=== PATIENT | female | born 1995 | race Caucasian/White ===

== ENCOUNTER 2020-11-04 15:30 | Emergency (ER) | payer MEDICAID ==
[~2020-11-04] VITALS: Ht 170.2 cm; Wt 90.7 kg
[2020-11-04 15:42] VITALS: BP_SYST 112
--- NOTE | 2020-11-04 15:49 | NUR ---
Patient to ER bed 7 to gown for evaluation. Side rails up.
--- NOTE | 2020-11-04 15:50 | NUR ---
Patient ambulated to restroom to provide urine sample.
--- NOTE | 2020-11-04 15:50 | NUR ---
Patient is awake, alert, and oriented x4. Patient was brought in via wheelchair for evaluation of abdominal pain since yesterday. Patient went to [facility] yesterday and was told she has inflammation and was sent home without pain medication. She is complaining of mild pain and it is difficult for her to walk because of it, she would also like pain medication.
--- NOTE | 2020-11-04 15:54 | NUR ---
Patient ambulated back to [facility].
[2020-11-04 16:11] LABS: COLOR,URINE YELLOW (YELLOW)
[2020-11-04 16:12] LABS: BILIRUBIN,URINE NEGATIVE (NEGATIVE); BLOOD, URINE 3+ (NEGATIVE); CLARITY/URINE HAZY (CLEAR); GLUCOSE,URINE NEGATIVE (NEGATIVE); KETONES,URINE NEGATIVE (NEGATIVE); LEUKOCYTE ESTERASE ,URINE 2+ (NEGATIVE); NITRITE, URINE NEGATIVE (NEGATIVE); PROTEIN URINE NEGATIVE (NEGATIVE); UROBILINOGEN,URINE 0.2 (0.2-1.0)
[2020-11-04 16:14] LABS: BACTERIA,URINE MANY /HPF (None Seen); MUCUS,URINE 1+ /LPF (None Seen); RBC,URINE 80-100 /HPF (0-3)
[2020-11-04 16:14] LABS: BASOPHILS # (AUTO) 0.1 K/uL (0.0-0.2); BASOPHILS % (AUTO) 0.9 % (0.0-2.0); EOSINOPHILS # (AUTO) 0.2 K/uL (0.0-0.4); EOSINOPHILS % (AUTO) 2.1 % (0.0-4.0); HEMATOCRIT 39.1 % (36-48); HEMOGLOBIN 13.1 g/dL (12.0-16.0); LYMPHOCYTES # (AUTO) 2.4 K/uL (1.0-5.5); LYMPHOCYTES % (AUTO) 25.2 % (20.5-51.5); MEAN CORPUSCULAR HEMOGLOBIN 29 pg (27-31); MEAN CORPUSCULAR HGB CONC 34 % (32-36); MEAN CORPUSCULAR VOLUME 86 fL (79.0-98.0); MONOCYTES # (AUTO) 0.5 K/uL (0.0-1.0); MONOCYTES % (AUTO) 5.1 % (1.7-9.3); NEUTROPHILS # (AUTO) 6.3 K/uL (1.8-7.7); NEUTROPHILS % (AUTO) 66.7 % (40.0-70.0); PLATELET COUNT (AUTO) 359 K/uL (130-430); RED BLOOD CELL COUNT(AUTO) 4.54 MIL/uL (4.2-6.2); RED CELL DISTRIBUTION WIDTH 14.2 % (9.0-15.0); WHITE BLOOD COUNT (AUTO) 9.5 K/uL (4.8-10.8)
[2020-11-04] MEDS ORDERED: ACETAMINOPHEN 500 MG TABLET PO ONE (16:15)
[2020-11-04 16:22] LABS: ANION GAP 12 (5-15); CHLORIDE 103 mmol/L (98-107); CREATININE 0.99 mg/dL (0.55-1.30); GLUCOSE 92 mg/dL (70-99); POTASSIUM 3.7 mmol/L (3.5-5.1); SODIUM SERUM 138 mmol/L (136-145); UREA NITROGEN, BLOOD 16 mg/dL (8-21)
[2020-11-04 16:28] LABS: ALANINE AMINOTRANSFERASE 90 U/L (12-78); ALBUMIN 3.2 g/dL (3.4-4.8); ASPARTATE AMINOTRANSFERASE 21 U/L (10-37); BILIRUBIN,DIRECT < 0.1 mg/dL (0.0-0.3); LIPASE 103 U/L (73-393); TOTAL BILIRUBIN 0.2 mg/dL (0.0-1.0)
[2020-11-04 16:30] LABS: GFR AFRICAN AMERICAN 89 mL/min (>90)
--- NOTE | 2020-11-04 19:15 | NUR ---
Report given to TRISTAN Lopez for continuation of care.
[2020-11-04] MEDS ORDERED: KETOROLAC TROMETHAMINE 15 MG VIAL IM ONE (19:45)
[2020-11-04] MEDS ORDERED: NITR-85 PO (19:46)
[2020-11-04 19:51] VITALS: BP_SYST 110
--- NOTE | 2020-11-04 19:51 | NUR ---
Patient given written and verbal discharge instructions and verbalizes understanding. ER MD MARTIN discussed with patient the results and treatment provided. Patient in stable condition. ID arm band removed. Rx of MACROBID given. Patient educated on pain management and to follow up with PMD. Pain Scale 2/10. Opportunity for questions provided and answered. Medication side effect fact sheet provided.
== END 2020-11-04 19:51 | disposition home or self-care (01) ==
LOC: SED 15:46
DX: N39.0 Urinary tract infection, site not specified (principal)
CPT/HCPCS: 36415; 76830-TC; 76856-TC; 76857; 80048; 80076; 81000; 81025; 83690; 85025; 87086; 99284